=== PATIENT | female | born 1995 | race Two or more races ===

== ENCOUNTER 2018-04-12 11:32 | Emergency (ER) | payer MEDICAID ==
[~2018-04-12] VITALS: Ht 152.4 cm; Wt 54.2 kg
[2018-04-12] MEDS ORDERED: KETOROLAC 30 MG/1 ML IM ONE (12:00)
[2018-04-12] MEDS ORDERED: KETOROLAC 30 MG/1 ML ONE (12:06)
[2018-04-12 14:27] VITALS: BP 109/74
== END 2018-04-12 13:11 | disposition home or self-care (01) ==
LOC: ED 13:05
DX: S16.1XXA Strain of muscle, fascia and tendon at neck level, initial encounter (principal); V49.88XA Car occupant (driver) (passenger) injured in other specified transport accidents, initial encounter; Y93.89 Activity, other specified; Y92.89 Other specified places as the place of occurrence of the external cause; Y99.8 Other external cause status
CPT/HCPCS: 72125; 96372; 99284; J1885

== ENCOUNTER 2019-05-29 19:12 | Emergency (ER) | payer MEDICAID, OTHER ==
[~2019-05-29] VITALS: Ht 154.9 cm; Wt 63.6 kg
[2019-05-29 19:33] VITALS: BP 108/78
[2019-05-29] MEDS ORDERED: SODIUM CHLORIDE FLUSH 10ML SYR IVF ONE (20:00)
[2019-05-29 20:11] LABS: BASOPHILS # (AUTO) 0.02 x10^3/uL (0-0.1); BASOPHILS % (AUTO) 0 % (0-1); EOSINOPHILS # (AUTO) 0.11 x10^3/uL (0-0.4); EOSINOPHILS % (AUTO) 1 % (1-7); LYMPHOCYTES # (AUTO) 2.66 x10^3/uL (1-3.4); LYMPHOCYTES % (AUTO) 29 % (22-44); MD NO; MEAN CORPUSCULAR HEMOGLOBIN 32.3 pg (27.0-34.8); MEAN CORPUSCULAR HGB CONC 34.1 g/dL (32.4-35.8); MEAN CORPUSCULAR VOLUME 94.8 fL (80-100); MEAN PLATELET VOLUME 9.4 fL (7.4-10.4); MONOCYTES # (AUTO) 0.57 x10^3/uL (0.2-0.8); MONOCYTES % (AUTO) 6 % (2-9); NEUTROPHILS # (AUTO) 5.99 x10^3/uL (1.8-6.8); NEUTROPHILS % (AUTO) 64 % (42-75); PLATELET COUNT 252 x10^3/uL (130-400); RED BLOOD COUNT 4.99 x10^6/uL (3.82-5.3); RED CELL DISTRIBUTION WIDTH 12.2 % (9.6-15.2)
[2019-05-29 20:20] LABS: ALANINE AMINOTRANSFERASE 25 U/L (12-78); ALBUMIN 4.1 g/dL (3.4-5.0); ANION GAP 7 mmol/L (5-15); CALCIUM 9.3 mg/dL (8.5-10.1); CHLORIDE 111 mmol/L (98-107)
[2019-05-29 20:25] LABS: ALKALINE PHOSPHATASE 90 U/L (45-117); BILIRUBIN,TOTAL 0.3 mg/dL (0.2-1.0); CREATININE 0.85 mg/dL (0.55-1.02); TOTAL PROTEIN 7.8 g/dL (6.4-8.2)
== END 2019-05-29 21:21 | disposition home or self-care (01) ==
LOC: ED 21:15
DX: B34.9 Viral infection, unspecified (principal); R11.2 Nausea with vomiting, unspecified
CPT/HCPCS: 36415; 71046; 80053; 84703; 85025; 93005; 99284

== ENCOUNTER 2019-06-17 23:26 | Emergency (ER) | payer MEDICAID ==
[~2019-06-17] VITALS: Ht 152.4 cm; Wt 62.6 kg
--- NOTE | 2019-06-17 23:47 | NUR ---
PT C/O VAGINAL BLEEDING X1 DAY, REPORTS HEAVIER THAN NORMAL WITH CRAMPING, NAUSEA, VOMITING AND DIZZINESS. PT DENIES OTHER C/O AT THIS TIME. PT REPORTS HAVING UNPROTECTED SEX FOR THE LAST SEVERAL MONTHS. PT CONNECTED TO MONITORING, CALL LIGHT WITHIN REACH, ALL SAFETY MEASURES IN PLACE.
[2019-06-18] MEDS ORDERED: ONDANSETRON ODT 4 MG PO ONE
[2019-06-18 00:01] LABS: BASOPHILS # (AUTO) 0.01 x10^3/uL (0-0.1); BASOPHILS % (AUTO) 0 % (0-1); EOSINOPHILS # (AUTO) 0.02 x10^3/uL (0-0.4); EOSINOPHILS % (AUTO) 0 % (1-7); LYMPHOCYTES # (AUTO) 1.15 x10^3/uL (1-3.4); LYMPHOCYTES % (AUTO) 17 % (22-44); MD NO; MEAN CORPUSCULAR HEMOGLOBIN 32.4 pg (27.0-34.8); MEAN CORPUSCULAR HGB CONC 34.4 g/dL (32.4-35.8); MEAN CORPUSCULAR VOLUME 94.3 fL (80-100); MEAN PLATELET VOLUME 9.3 fL (7.4-10.4); MONOCYTES # (AUTO) 0.38 x10^3/uL (0.2-0.8); MONOCYTES % (AUTO) 6 % (2-9); NEUTROPHILS # (AUTO) 5.39 x10^3/uL (1.8-6.8); NEUTROPHILS % (AUTO) 78 % (42-75); PLATELET COUNT 203 x10^3/uL (130-400); RED BLOOD COUNT 4.91 x10^6/uL (3.82-5.3); RED CELL DISTRIBUTION WIDTH 11.8 % (9.6-15.2)
[2019-06-18 00:11] LABS: MICROSCOPIC INDICATED
[2019-06-18 00:13] LABS: ALANINE AMINOTRANSFERASE 29 U/L (12-78); ALBUMIN 4.1 g/dL (3.4-5.0); ANION GAP 7 mmol/L (5-15); CALCIUM 8.9 mg/dL (8.5-10.1); CHLORIDE 112 mmol/L (98-107); CREATININE 0.79 mg/dL (0.55-1.02)
[2019-06-18 00:13] LABS: CULTURE INDICATED? YES
[2019-06-18 00:18] LABS: ALKALINE PHOSPHATASE 86 U/L (45-117); BILIRUBIN,TOTAL 0.5 mg/dL (0.2-1.0); TOTAL PROTEIN 7.6 g/dL (6.4-8.2)
[2019-06-18] MEDS ORDERED: ONDANSETRON ODT 4 MG ONE (00:31)
[2019-06-18 00:33] VITALS: BP 113/79
--- NOTE | 2019-06-18 00:58 | NUR ---
FAMILY AT BS FOR SUPPORT, PT UPDATED ON POC.
== END 2019-06-18 01:20 | disposition home or self-care (01) ==
LOC: ED 23:42
DX: N92.1 Excessive and frequent menstruation with irregular cycle (principal); R10.30 Lower abdominal pain, unspecified; N93.8 Other specified abnormal uterine and vaginal bleeding; R11.2 Nausea with vomiting, unspecified
CPT/HCPCS: 36415; 76830; 80053; 81001; 84703; 85025; 87086; 99284; Q0162; 87147

== ENCOUNTER 2019-11-01 09:12 | Emergency (ER) | payer MEDICAID ==
[~2019-11-01] VITALS: Ht 152.4 cm; Wt 63.0 kg
[2019-11-01] MEDS ORDERED: KETOROLAC 30 MG/1 ML IM ONE (09:30)
[2019-11-01] MEDS ORDERED: KETOROLAC 60 MG/2 ML ONE (09:45)
--- NOTE | 2019-11-01 09:50 | NUR ---
pt in ct w tech
--- NOTE | 2019-11-01 10:44 | NUR ---
REVIEW OF CHART, ASSUME CARE OF PT AT THIS TIME.
--- NOTE | 2019-11-01 10:51 | NUR ---
ADDY (RN) IS ASSUMING CARE OF THIS PT AT THIS TIME. SBAR REPORT WAS EXCHANGED AT THE BEDSIDE.
[2019-11-01 11:40] VITALS: BP 118/64
== END 2019-11-01 11:43 | disposition home or self-care (01) ==
LOC: ED 09:33
DX: S16.1XXA Strain of muscle, fascia and tendon at neck level, initial encounter (principal); S39.012A Strain of muscle, fascia and tendon of lower back, initial encounter; R05 Cough; X58.XXXA Exposure to other specified factors, initial encounter; Y93.89 Activity, other specified; Y92.89 Other specified places as the place of occurrence of the external cause; Y99.8 Other external cause status
CPT/HCPCS: 72072; 72125; 96372; 99284; J1885

== ENCOUNTER 2019-11-20 13:58 | Emergency (ER) | payer MEDICAID ==
[~2019-11-20] VITALS: Ht 152.4 cm; Wt 63.6 kg
--- NOTE | 2019-11-20 14:13 | NUR ---
FIRST CONTACT WITH PT. PT FAINTED AT WORK YESTERDAY. PT ALSO STATES SHE WAS THROWING UP THIS MORNING. "I THINK I MIGHT BE ". PT ALSO CO OF MINOR ABD CRAMPING. LMP - 4 WEEKS AGO PT'S AOX4. RESPS EVEN AND UNLABORED. BP/SPO2 MONITORS IN PLACE. CALL LIGHT WITHIN REACH.
--- NOTE | 2019-11-20 14:34 | NUR ---
urine collected. ua sent at this time.
--- NOTE | 2019-11-20 14:44 | NUR ---
ekg at bedside by emt at this time.
[2019-11-20 14:49] LABS: MICROSCOPIC NOT IND
[2019-11-20 15:11] LABS: BASOPHILS # (AUTO) 0.03 x10^3/uL (0-0.1); BASOPHILS % (AUTO) 1 % (0-1); EOSINOPHILS # (AUTO) 0.05 x10^3/uL (0-0.4); EOSINOPHILS % (AUTO) 1 % (1-7); LYMPHOCYTES # (AUTO) 2.36 x10^3/uL (1-3.4); LYMPHOCYTES % (AUTO) 33 % (22-44); MD NO; MEAN CORPUSCULAR HEMOGLOBIN 31.7 pg (27.0-34.8); MEAN CORPUSCULAR HGB CONC 33.3 g/dL (32.4-35.8); MEAN CORPUSCULAR VOLUME 95.3 fL (80-100); MEAN PLATELET VOLUME 8.6 fL (7.4-10.4); MONOCYTES # (AUTO) 0.43 x10^3/uL (0.2-0.8); MONOCYTES % (AUTO) 6 % (2-9); NEUTROPHILS # (AUTO) 4.32 x10^3/uL (1.8-6.8); NEUTROPHILS % (AUTO) 60 % (42-75); PLATELET COUNT 223 x10^3/uL (130-400); RED BLOOD COUNT 4.49 x10^6/uL (3.82-5.3); RED CELL DISTRIBUTION WIDTH 12.4 % (9.6-15.2)
[2019-11-20 15:18] LABS: ALBUMIN 3.7 g/dL (3.4-5.0); ANION GAP 4 mmol/L (5-15); CALCIUM 8.5 mg/dL (8.5-10.1); CHLORIDE 111 mmol/L (98-107)
[2019-11-20 15:24] LABS: ALANINE AMINOTRANSFERASE 69 U/L (12-78); ALKALINE PHOSPHATASE 77 U/L (45-117); BILIRUBIN,TOTAL 0.3 mg/dL (0.2-1.0); CREATININE 1.05 mg/dL (0.55-1.02); TOTAL PROTEIN 7.2 g/dL (6.4-8.2)
--- NOTE | 2019-11-20 15:33 | NUR ---
PT RESTING IN [facility]. PT'S AOX4. RESPS EVEN AND UNLABORED. BP/SPO2 MONITORS IN PLACE. CALL LIGHT WITHIN REACH.
[2019-11-20 16:41] VITALS: BP 107/70
--- NOTE | 2019-11-20 16:42 | NUR ---
Patient given discharge instructions and they have confirmed that they understand the instructions. Patient ambulatory with steady gait.
== END 2019-11-20 16:43 | disposition home or self-care (01) ==
LOC: ED 16:29
DX: R42 Dizziness and giddiness (principal); R11.2 Nausea with vomiting, unspecified; R55 Syncope and collapse; R51 Headache
CPT/HCPCS: 36415; 80053; 81003; 84703; 85025; 93005; 99284; 99285

== ENCOUNTER 2019-12-11 02:05 | Emergency (ER) | payer MEDICAID ==
[~2019-12-11] VITALS: Ht 165.1 cm; Wt 63.7 kg
[2019-12-11 02:09] VITALS: BP 109/73
[2019-12-11] MEDS ORDERED: ONDANSETRON ODT 4 MG ONE (02:50)
[2019-12-11] MEDS ORDERED: ONDANSETRON ODT 4 MG PO ONE (03:00)
[2019-12-11 03:49] LABS: HCG UR SG 1.033 (1.003-1.030)
== END 2019-12-11 04:11 | disposition home or self-care (01) ==
LOC: ED 03:08
DX: U07.1 COVID-19 (principal); R09.81 Nasal congestion; M79.10 Myalgia, unspecified site; R11.0 Nausea; R43.8 Other disturbances of smell and taste
CPT/HCPCS: 36415; 81025; 87635; 99283; Q0162

== ENCOUNTER 2019-12-29 10:28 | Emergency (ER) | payer MEDICAID ==
[~2019-12-29] VITALS: Ht 152.4 cm; Wt 59.9 kg
--- NOTE | 2019-12-29 11:03 | NUR ---
C/O PAIN, ITCHINESS, WHITE BUMPS TO ANTERIOR LABIAL AREA, PAIN W/ PEEING, PAIN W/ SEX X 1 DAY. USED VAGISIL W/OUT RELIEF. UNPROTECTED SEX. PT & BOYFRIEND DENY HX STD'S. ADMITS BOTH HAD SEX W/ OTHER PARTNERS RECENTLY.
--- NOTE | 2019-12-29 11:08 | NUR ---
ADMITS TO SHAVING LABIAL AREA REGULARLY. STOPPED BIRTHCONTROL RECENTLY; STATES IT MAKES HER NAUSEOUS, NO PLANS TO RESUME BC.
--- NOTE | 2019-12-29 11:12 | NUR ---
WATERPROOFER HELPER CART TO ROOM
[2019-12-29 12:25] LABS: MICROSCOPIC NOT IND
[2019-12-29 12:41] LABS: CLUE CELLS NONE SEEN (NONE SEEN); WET PREP WBCS MANY (FEW)
[2019-12-29] MEDS ORDERED: CEFTRIAXONE 250 MG ONE (13:27)
[2019-12-29] MEDS ORDERED: LIDOCAINE-MPF 1%, 2ML ONE (13:28)
[2019-12-29] MEDS ORDERED: AZITHROMYCIN 250 MG TABLET ONE (13:28)
[2019-12-29] MEDS ORDERED: AZITHROMYCIN 500 MG TABLET PO ONE (13:30)
[2019-12-29] MEDS ORDERED: CEFTRIAXONE 250 MG IM ONE (13:30)
[2019-12-29 14:00] VITALS: BP 109/77
== END 2019-12-29 14:04 | disposition home or self-care (01) ==
LOC: ED 12:18
DX: A60.04 Herpesviral vulvovaginitis (principal); A64 Unspecified sexually transmitted disease; R10.2 Pelvic and perineal pain; N89.8 Other specified noninflammatory disorders of vagina
CPT/HCPCS: 81003; 81025; 87210; 87491; 87591; 87808; 96372; 99283; J0696

== ENCOUNTER 2020-01-30 06:48 | Emergency (ER) | payer MEDICAID ==
[~2020-01-30] VITALS: Ht 152.4 cm; Wt 63.0 kg
--- NOTE | 2020-01-30 07:22 | NUR ---
ASSUMED CARE OF PT. PT RESTING COMFORTABLY ON GURNEY. NO NEEDS AT THIS TIME. CALL LIGHT WITHIN REACH.
[2020-01-30] MEDS ORDERED: ONDANSETRON ODT 8 MG ONE (07:25)
[2020-01-30] MEDS ORDERED: FAMOTIDINE 20 MG TABLET ONE (07:25)
[2020-01-30] MEDS ORDERED: ONDANSETRON ODT 8 MG PO ONE (07:30)
[2020-01-30] MEDS ORDERED: FAMOTIDINE 20 MG TABLET PO ONE (07:30)
[2020-01-30 07:46] LABS: BASOPHILS # (AUTO) 0.03 x10^3/uL (0-0.1); BASOPHILS % (AUTO) 1 % (0-1); EOSINOPHILS # (AUTO) 0.06 x10^3/uL (0-0.4); EOSINOPHILS % (AUTO) 1 % (1-7); LYMPHOCYTES # (AUTO) 1.71 x10^3/uL (1-3.4); LYMPHOCYTES % (AUTO) 32 % (22-44); MD NO; MEAN CORPUSCULAR HEMOGLOBIN 31.7 pg (27.0-34.8); MEAN CORPUSCULAR HGB CONC 34.1 g/dL (32.4-35.8); MEAN CORPUSCULAR VOLUME 92.8 fL (80-100); MEAN PLATELET VOLUME 8.8 fL (7.4-10.4); MONOCYTES # (AUTO) 0.39 x10^3/uL (0.2-0.8); MONOCYTES % (AUTO) 7 % (2-9); NEUTROPHILS # (AUTO) 3.22 x10^3/uL (1.8-6.8); NEUTROPHILS % (AUTO) 59 % (42-75); PLATELET COUNT 216 x10^3/uL (130-400); RED BLOOD COUNT 5.04 x10^6/uL (3.82-5.3); RED CELL DISTRIBUTION WIDTH 12.8 % (9.6-15.2)
[2020-01-30 07:58] LABS: ANION GAP 6 mmol/L (5-15); CALCIUM 8.8 mg/dL (8.5-10.1); CHLORIDE 112 mmol/L (98-107); CREATININE 0.78 mg/dL (0.55-1.02)
--- NOTE | 2020-01-30 08:15 | NUR ---
PT RESTING COMFORTABLY ON GURNEY. PT STATES "MY NAUSEA IS SO MUCH BETTER AND I WAS ABLE TO DRINK SOME WATER WITHOUT NAUSEA". DENIES ANY NEEDS AT THIS TIME. CALL LIGHT WITHIN REACH.
[2020-01-30 08:30] LABS: MICROSCOPIC NOT IND
[2020-01-30 09:17] VITALS: BP 111/73
--- NOTE | 2020-01-30 09:17 | NUR ---
Patient given discharge instructions and they have confirmed that they understand the instructions. Patient ambulatory with steady gait to d/c desk.
== END 2020-01-30 09:21 | disposition home or self-care (01) ==
LOC: ED 07:44
DX: R11.2 Nausea with vomiting, unspecified (principal); R10.2 Pelvic and perineal pain
CPT/HCPCS: 36415; 80048; 81003; 84703; 85025; 99283; Q0162

== ENCOUNTER 2020-02-27 07:05 | Emergency (ER) | payer MEDICAID ==
[~2020-02-27] VITALS: Ht 152.4 cm; Wt 64.7 kg
[2020-02-27 07:13] VITALS: BP 111/70
[2020-02-27] MEDS ORDERED: ONDANSETRON ODT 4 MG PO ONE (07:30)
[2020-02-27] MEDS ORDERED: ONDANSETRON ODT 4 MG ONE (07:45)
[2020-02-27 08:06] LABS: BASOPHILS % (AUTO) 1 % (0-1); EOSINOPHILS % (AUTO) 1 % (1-7); LYMPHOCYTES % (AUTO) 33 % (22-44); MEAN CORPUSCULAR HEMOGLOBIN 31.5 pg (27.0-34.8); MEAN CORPUSCULAR HGB CONC 34.3 g/dL (32.4-35.8); MEAN PLATELET VOLUME 8.7 fL (7.4-10.4); MONOCYTES % (AUTO) 7 % (2-9); NEUTROPHILS % (AUTO) 58 % (42-75); PLATELET COUNT 217 x10^3/uL (130-400); RED BLOOD COUNT 4.82 x10^6/uL (3.82-5.3); RED CELL DISTRIBUTION WIDTH 12.7 % (9.6-15.2)
[2020-02-27 08:10] LABS: MD NO
[2020-02-27 08:44] LABS: MICROSCOPIC INDICATED
== END 2020-02-27 09:37 | disposition home or self-care (01) ==
LOC: ED 07:24
DX: O26.891 Other specified pregnancy related conditions, first trimester (principal); R10.2 Pelvic and perineal pain; Z3A.01 Less than 8 weeks gestation of pregnancy
CPT/HCPCS: 36415; 76830; 81001; 84702; 85025; 86901; 87086; 99284; Q0162

== ENCOUNTER 2020-03-03 10:39 | Emergency (ER) | payer OTHER, MEDICAID ==
[~2020-03-03] VITALS: Ht 152.4 cm; Wt 63.3 kg
--- NOTE | 2020-03-03 11:00 | NUR ---
PT C/O RIGHT HAND CUTS TO FINGERS WHILE WASHING DISHES, ALSO REPORTS SHE HAS LOWER ABD CRAMPING SINCE YESTERDAY AND VAGINAL SPOTTING TODAY, PT STATES SHE IS UNKNOWN WEEKS, LMP 2-3 MONTHS AGO PER PT.
[2020-03-03] MEDS ORDERED: LIDOCAINE-MPF 1%, 5ML ONE (11:15)
[2020-03-03] MEDS ORDERED: LIDOCAINE-MPF 1%, 5ML INFIL ONE (11:30)
--- NOTE | 2020-03-03 11:40 | NUR ---
PT TRANSPORTED TO [facility].
--- NOTE | 2020-03-03 12:36 | NUR ---
PT BACK FROM [facility], ER PROVIDER AT BEDSIDE FOR SUTURES.
[2020-03-03] MEDS ORDERED: NEOSPORIN OINT. PKT 1 PACKET ONE (13:21)
[2020-03-03 13:24] VITALS: BP 116/64
== END 2020-03-03 13:26 | disposition home or self-care (01) ==
LOC: ED 11:20
DX: O26.891 Other specified pregnancy related conditions, first trimester (principal); S91.114A Laceration without foreign body of right lesser toe(s) without damage to nail, initial encounter; O46.91 Antepartum hemorrhage, unspecified, first trimester; Z3A.00 Weeks of gestation of pregnancy not specified; W26.8XXA Contact with other sharp object(s), not elsewhere classified, initial encounter; Y93.89 Activity, other specified; Y92.89 Other specified places as the place of occurrence of the external cause; Y99.8 Other external cause status
CPT/HCPCS: 12001; 36415; 76801; 84702; 99284

== ENCOUNTER 2020-03-05 07:04 | Emergency (ER) | payer MEDICAID ==
[~2020-03-05] VITALS: Ht 152.4 cm; Wt 63.0 kg
[2020-03-05 07:11] VITALS: BP 113/67
--- NOTE | 2020-03-05 08:50 | NUR ---
PT IN US AT THIS TIME.
== END 2020-03-05 09:53 | disposition home or self-care (01) ==
LOC: ED 07:18
DX: O26.891 Other specified pregnancy related conditions, first trimester (principal); R10.2 Pelvic and perineal pain; Z3A.01 Less than 8 weeks gestation of pregnancy
CPT/HCPCS: 36415; 76801; 84702; 99284

== ENCOUNTER 2020-03-12 06:55 | Emergency (ER) | payer MEDICAID ==
[~2020-03-12] VITALS: Ht 152.4 cm; Wt 63.2 kg
[2020-03-12 06:57] VITALS: BP 163/67
[2020-03-12] MEDS ORDERED: ACETAMINOPHEN 500 MG TABLET ONE (07:46)
[2020-03-12] MEDS ORDERED: METOCLOPRAMIDE 10MG TABLET ONE (07:50)
[2020-03-12] MEDS ORDERED: ACETAMINOPHEN 500 MG TABLET PO ONE (08:00)
[2020-03-12] MEDS ORDERED: METOCLOPRAMIDE 10MG TABLET PO SCH (08:00)
[2020-03-12 08:02] LABS: BASOPHILS % (AUTO) 1 % (0-1); EOSINOPHILS % (AUTO) 2 % (1-7); LYMPHOCYTES % (AUTO) 31 % (22-44); MEAN CORPUSCULAR HEMOGLOBIN 31.8 pg (27.0-34.8); MEAN CORPUSCULAR HGB CONC 34.5 g/dL (32.4-35.8); MEAN PLATELET VOLUME 8.7 fL (7.4-10.4); MONOCYTES % (AUTO) 10 % (2-9); NEUTROPHILS % (AUTO) 56 % (42-75); PLATELET COUNT 201 x10^3/uL (130-400); RED BLOOD COUNT 4.65 x10^6/uL (3.82-5.3); RED CELL DISTRIBUTION WIDTH 12.3 % (9.6-15.2)
[2020-03-12 08:04] LABS: MD NO
[2020-03-12 08:14] LABS: ALBUMIN 3.8 g/dL (3.4-5.0); ANION GAP 6 mmol/L (5-15); CALCIUM 8.8 mg/dL (8.5-10.1); CHLORIDE 112 mmol/L (98-107); CREATININE 0.66 mg/dL (0.55-1.02)
[2020-03-12 08:18] LABS: MICROSCOPIC INDICATED
--- NOTE | 2020-03-12 09:02 | NUR ---
REPORT FROM [facility], ASSUME CARE OF PT AT THIS TIME. ALL RESULTS BACK, PT FOR RECHECK.
== END 2020-03-12 09:33 | disposition home or self-care (01) ==
LOC: ED 07:31
DX: O21.0 Mild hyperemesis gravidarum (principal); R10.9 Unspecified abdominal pain; R10.2 Pelvic and perineal pain; M54.5 Low back pain; Z3A.01 Less than 8 weeks gestation of pregnancy
CPT/HCPCS: 36415; 76801; 80048; 81001; 82040; 84702; 85025; 87086; 99284

== ENCOUNTER 2020-04-24 11:21 | Emergency (ER) | payer MEDICAID, OTHER ==
[~2020-04-24] VITALS: Ht 152.4 cm; Wt 62.3 kg
[2020-04-24] MEDS ORDERED: ACETAMINOPHEN 325 MG TABLET ONE (12:12)
--- NOTE | 2020-04-24 12:18 | NUR ---
PT CAME IN CO OF RLQ AND LLQ ABD PAIN X 1 WEEK. PT STATES SHE IS 4 MONTHS . DENIES BLEEDING. THIS IS HER FIRST . UA SENT. LABS DRAWN. PT TO US AT THIS TIME
[2020-04-24] MEDS ORDERED: ACETAMINOPHEN 325 MG TABLET PO ONE (12:30)
[2020-04-24 12:49] LABS: MICROSCOPIC INDICATED
[2020-04-24 12:51] LABS: BASOPHILS % (AUTO) 0 % (0-1); EOSINOPHILS % (AUTO) 0 % (1-7); LYMPHOCYTES % (AUTO) 23 % (22-44); MEAN CORPUSCULAR HEMOGLOBIN 31.5 pg (27.0-34.8); MEAN CORPUSCULAR HGB CONC 35.2 g/dL (32.4-35.8); MEAN PLATELET VOLUME 9.1 fL (7.4-10.4); MONOCYTES % (AUTO) 7 % (2-9); NEUTROPHILS % (AUTO) 69 % (42-75); PLATELET COUNT 215 x10^3/uL (130-400); RED BLOOD COUNT 4.75 x10^6/uL (3.82-5.3)
[2020-04-24 12:52] LABS: MD NO
[2020-04-24 13:00] LABS: ANION GAP 7 mmol/L (5-15); CALCIUM 9.4 mg/dL (8.5-10.1); CHLORIDE 105 mmol/L (98-107)
[2020-04-24 13:19] LABS: ALANINE AMINOTRANSFERASE 19 U/L (12-78); ALKALINE PHOSPHATASE 61 U/L (45-117); BILIRUBIN,TOTAL 0.7 mg/dL (0.2-1.0); CREATININE 0.64 mg/dL (0.55-1.02); TOTAL PROTEIN 7.5 g/dL (6.4-8.2)
[2020-04-24 13:53] VITALS: BP 134/86
== END 2020-04-24 13:55 | disposition home or self-care (01) ==
LOC: ED 12:37
DX: O26.891 Other specified pregnancy related conditions, first trimester (principal); R55 Syncope and collapse; R42 Dizziness and giddiness; R11.10 Vomiting, unspecified; R10.2 Pelvic and perineal pain; Z3A.12 12 weeks gestation of pregnancy
CPT/HCPCS: 36415; 76801; 80053; 81001; 84702; 85025; 87086; 93005; 99285

== ENCOUNTER 2020-05-12 11:20 | Emergency (ER) | payer OTHER, MEDICAID ==
[~2020-05-12] VITALS: Ht 165.1 cm; Wt 64.4 kg
[2020-05-12 12:07] LABS: BASOPHILS % (AUTO) 0 % (0-1); EOSINOPHILS % (AUTO) 0 % (1-7); LYMPHOCYTES % (AUTO) 15 % (22-44); MEAN CORPUSCULAR HEMOGLOBIN 31.8 pg (27.0-34.8); MEAN CORPUSCULAR HGB CONC 35.3 g/dL (32.4-35.8); MEAN PLATELET VOLUME 8.8 fL (7.4-10.4); MONOCYTES % (AUTO) 4 % (2-9); NEUTROPHILS % (AUTO) 80 % (42-75); PLATELET COUNT 189 x10^3/uL (130-400); RED BLOOD COUNT 4.34 x10^6/uL (3.82-5.3); RED CELL DISTRIBUTION WIDTH 12.1 % (9.6-15.2)
[2020-05-12 12:09] LABS: MD NO
--- NOTE | 2020-05-12 12:10 | NUR ---
PT COMES IN STATING SHE IS APPROX. 15 WEEKS WITH VAGINAL BLEEDING, LLQ PELVIC PAIN, FOLLOWING A FALL DOWN 4-5 STAIRS 05/11/20. STATES SHE WAS WALKING AND "SLIPPED". STATES SHE HIT HER FACE ON THE RIGHT SIDE, DENIES LOC. STATES SHE HIT HER RIGHT LEG. RIGHT EYE WITH BRUISE, RIGHT THIGH WITH BRUISE. STATES BROWISH VAGINAL DISCHARGE WHEN URINATING 1 TIME 05/11 AND AGAIN 05/12. STATES HAS NOT NEEDED TO WEAR A PERIPAD. MONITORS CONNECTED. WARM BLANKETS PROVIDED. LAB AT BEDSIDE.
[2020-05-12 12:18] LABS: ALBUMIN 3.3 g/dL (3.4-5.0); ANION GAP 7 mmol/L (5-15); CALCIUM 8.6 mg/dL (8.5-10.1); CHLORIDE 110 mmol/L (98-107)
[2020-05-12 12:39] LABS: ALANINE AMINOTRANSFERASE 19 U/L (12-78); ALKALINE PHOSPHATASE 54 U/L (45-117); BILIRUBIN,TOTAL 0.4 mg/dL (0.2-1.0); CREATININE 0.55 mg/dL (0.55-1.02); TOTAL PROTEIN 6.6 g/dL (6.4-8.2)
--- NOTE | 2020-05-12 13:25 | NUR ---
RESIDENTIAL ENERGY AUDITOR AT BEDSIDE
[2020-05-12 13:54] VITALS: BP 99/52
--- NOTE | 2020-05-12 14:12 | NUR ---
PT AMBULATED TO DISCHARGE WITH STEADY GAIT. PT ENCOURAGED TO FOLLOW-UP DISCUSSED. PT EDUCATED TO RETURN TO THE ER WITH WORSENING SYPMTOMS. VERBALIZED UNDERSTANDING
== END 2020-05-12 14:12 | disposition home or self-care (01) ==
LOC: ED 13:34
DX: O20.0 Threatened abortion (principal); O9A.212 Injury, poisoning and certain other consequences of external causes complicating pregnancy, second trimester; S70.01XA Contusion of right hip, initial encounter; S00.11XA Contusion of right eyelid and periocular area, initial encounter; S09.90XA Unspecified injury of head, initial encounter; Z3A.16 16 weeks gestation of pregnancy; X58.XXXA Exposure to other specified factors, initial encounter; Y93.89 Activity, other specified; Y92.89 Other specified places as the place of occurrence of the external cause; Y99.8 Other external cause status
CPT/HCPCS: 36415; 76815; 80053; 84702; 85025; 86901; 99283; 99284

== ENCOUNTER 2020-06-12 09:05 | Emergency (ER) | payer MEDICAID, OTHER ==
[~2020-06-12] VITALS: Ht 152.4 cm; Wt 68.4 kg
--- NOTE | 2020-06-12 09:17 | NUR ---
PATIENT WALKED BACK FROM TRIAGE WITH CHIEF C/O PAINFUL URINATION. PATIENT STATES SHE IS 19 WEEKS AND FOR THE LAST 2 DAYS SHE HAS BEEN HAVING PAINFUL URINATION, VAGINAL DISCHARGE, AND VAGINAL ITCHING. PATIENT DENIES ABD CRAMPING, DENIES BLEEDING, DENIES FEVER, N/V/D. URINE SAMPLE COLLECTED AND SENT TO LAB. NADN, PATIENT CONNECTED TO MONITOR, CALL LIGHT WITHIN REACH.
[2020-06-12 09:54] LABS: MICROSCOPIC INDICATED
--- NOTE | 2020-06-12 10:08 | NUR ---
report recived, vss, pt in room with call light. ua in lab.
[2020-06-12 11:10] VITALS: BP 100/60
== END 2020-06-12 11:15 | disposition home or self-care (01) ==
LOC: ED 09:35
DX: O23.42 Unspecified infection of urinary tract in pregnancy, second trimester (principal); B37.3 Candidiasis of vulva and vagina; Z3A.18 18 weeks gestation of pregnancy
CPT/HCPCS: 81001; 87086; 99283